=== PATIENT | male | born 1980 | race Caucasian/White ===

== ENCOUNTER 2020-02-26 22:07 | Emergency (ER) | payer OTHER ==
--- NOTE | 2020-02-27 00:18 | ER Document Report ---
ED Medical Screen (RME) - General Chief Complaint: Medical Clearance Stated Complaint: MEDICAL CLEARANCE Time Seen by Provider: 02/27/20 00:14 Notes: HPI: 39-year-old male presenting for clearance to go to [place]. Patient is an alcoholic. Patient states he drinks 12-24 beers daily. Last drink was 3 to 4 hours ago. Patient was attempting to go to rehab but when he checked in there he blew 0.3 and they require 0.2. He is here just to obtain medical clearance has no physical complaints at this time PHYSICAL EXAMINATION: Patient does smell of alcohol. Lung sounds are clear to auscultation very mild tachycardia is noted. No shaking in the extremities. Patient is answering all questions appropriately I have greeted and performed a rapid initial assessment of this patient. A comprehensive ED assessment and evaluation of the patient, analysis of test results and completion of medical decision making process will be conducted by an additional ED providers. Physical Exam - Vital signs Vitals: Temp Pulse Resp BP Pulse Ox 98.4 F 99 20 131/90 H 98 02/26/20 23:22 02/26/20 23:22 02/26/20 23:22 02/26/20 23:22 02/26/20 23:22 Course - Vital Signs Vital signs: Temp Pulse Resp BP Pulse Ox 98.4 F 99 20 131/90 H 98 02/26/20 23:22 02/26/20 23:22 02/26/20 23:22 02/26/20 23:22 02/26/20 23:22
[2020-02-27 01:08] LABS: ABSOLUTE EOSINOPHILS # (AUTO) 0.1 10^3/uL (0.0-0.6); ABSOLUTE MONOCYTES (AUTO) 0.4 10^3/uL (0.1-1.4); ABSOLUTE NEUT (AUTO) 1.6 10^3/uL (1.7-8.2); BASOPHILS % (AUTO) 0.6 % (0-2); EOSINOPHILS % (AUTO) 1.7 % (0-6); HEMATOCRIT 45.3 % (37.9-51.0); LYMPHOCYTES % (AUTO) 50.1 % (13-45); MEAN CORPUSCULAR HEMOGLOBIN 32.4 pg (27.0-33.4); MEAN CORPUSCULAR HGB CONC 35.3 g/dL (32.0-36.0); MEAN CORPUSCULAR VOLUME 92 fl (80-97); MONOCYTES % (AUTO) 9.4 % (3-13); RED BLOOD COUNT 4.93 10^6/uL (4.35-5.55); SEGMENTED NEUTROPHILS % (AUTO) 38.2 % (42-78); TOTAL CELLS COUNTED % (AUTO) 100 %; WHITE BLOOD COUNT 4.1 10^3/uL (4.0-10.5)
[2020-02-27 01:20] LABS: ALBUMIN 4.8 g/dL (3.5-5.0); ALKALINE PHOSPHATASE 67 U/L (38-126); ANION GAP 14 (5-19); ASPARTATE AMINO TRANSFERASE 278 U/L (17-59); BILIRUBIN,TOTAL 0.7 mg/dL (0.2-1.3); BLOOD UREA NITROGEN 2 mg/dL (7-20); CARBON DIOXIDE 25 mmol/L (22-30); CHLORIDE 97 mmol/L (98-107); GLUCOSE 95 mg/dL (75-110); POTASSIUM 4.6 mmol/L (3.6-5.0); TOTAL PROTEIN 8.4 g/dL (6.3-8.2)
[2020-02-27 01:26] LABS: PLATELET COUNT 71 10^3/uL (150-450)
[2020-02-27 01:46] LABS: ALCOHOL 338 mg/dL (NONE DETECTED)
--- NOTE | 2020-02-27 06:43 | ER Document Report ---
ED Substance Abuse / Acc. OD - General Chief Complaint: Medical Clearance Stated Complaint: MEDICAL CLEARANCE Time Seen by Provider: 02/27/20 00:14 Primary Care Provider: CAMMIE,SHUBHAM [Primary Care Provider] - Follow up as needed Notes: Patient is a 39-year-old male who comes emergency department for chief complaint of alcohol intoxication and alcohol dependence. Patient went to [facility], he was referred to the dislocation because he was too intoxicated. Patient states he drinks about 12-24 beers daily, he states that he gets very shaky and has uncomfortable withdrawals but denies having seizures with wi thdrawals in the past. He has no current complaints. Past medical history includes PTSD, ADHD, narcolepsy. Patient states that he does want detox, patient's significant other at bedside is very supportive of this. He denies recreational drugs other than marijuana, denies medical history otherwise. Past Medical History - General Information source: Patient - Social History Smoking Status: Current Every Day Smoker Frequency of alcohol use: Heavy Drug Abuse: Marijuana Lives with: Spouse/Significant other Family History: Reviewed & Not Pertinent Psychiatric Medical History: Reports: Hx Attention Deficit Hyperactivity Disorder, Hx Depression, Hx Post Traumatic Stress Disorder Past Surgical History: Reports: Hx Abdominal Surgery - Immunizations Hx Diphtheria, Pertussis, Tetanus Vaccination: Yes Review of Systems - Review of Systems Constitutional: No symptoms reported EENT: No symptoms reported Cardiovascular: No symptoms reported Respiratory: No symptoms reported Gastrointestinal: No symptoms reported Genitourinary: No symptoms reported Male Genitourinary: No symptoms reported Musculoskeletal: No symptoms reported Skin: No symptoms reported Hematologic/Lymphatic: No symptoms reported Neurological/Psychological: See HPI Physical Exam - Vital signs Vitals: Temp Pulse Resp BP Pulse Ox 98.4 F 99 20 131/90 H 98 02/26/20 23:22 02/26/20 23:22 02/26/20 23:22 02/26/20 23:22 02/26/20 23:22 - Notes Notes: GENERAL: Alert, interacts well. No acute distress. Smells of alcohol but is cooperative and has no signs of distress HEAD: Normocephalic, atraumatic. EYES: Pupils equal, round, and reactive to light. Extraocular movements intact. ENT: Oral mucosa moist, tongue midline. Oropharynx unremarkable. Airway patent. LUNGS: Clear to auscultation bilaterally, no wheezes, rales, or rhonchi. No respiratory distress. Non-tender chest wall. HEART: Regular rate and rhythm. No murmur ABDOMEN: Soft, non-tender. Non-distended. EXTREMITIES: Moves all 4 extremities spontaneously. No edema, normal radial and dorsalis pedis pulses bilaterally. No cyanosis. BACK: no cervical, thoracic, lumbar midline tenderness. No saddle anesthesia, normal distal neurovascular exam. Moves all extremities in full range of motion. NEUROLOGICAL: Alert and oriented x3. Normal speech. Cranial nerves II through XII grossly intact. Strength 5/5 in all extremities. PSYCH: Normal affect, normal mood. SKIN: Warm, dry, normal turgor. No rashes or lesions noted. Course - Re-evaluation Re-evalutation: Patient has no complaints, states he is simply here to get into detox. He smells of alcohol but his physical exam is unremarkable otherwise. Vital signs unremarkable. CBC unremarkable, chemistry shows elevated LFTs with AST greater than ALT as expected but patient has no abdominal pain, vomiting, flank pain, or any other current symptoms. I suspect this is baseline from his alcohol abuse. Alcohol level is very elevated and will need to be trended before he can be placed in detox. - Vital Signs Vital signs: Temp Pulse Resp BP Pulse Ox 98.4 F 87 20 126/87 H 98 02/27/20 03:13 02/27/20 03:13 02/26/20 23:22 02/27/20 03:13 02/27/20 03:13 - Laboratory Result Diagrams: 02/27/20 00:50 02/27/20 00:50 Laboratory results interpreted by me: 02/27/20 02/27/20 00:50 00:50 RDW 16.0 H Plt Count 71 L Lymph % (Auto) 50.1 H Absolute Neuts (auto) 1.6 L Seg Neutrophils % 38.2 L Sodium 135.6 L Chloride 97 L BUN 2 L AST 278 H ALT 174 H Total Protein 8.4 H Serum Alcohol 338 H* Discharge - Discharge Clinical Impression: Alcohol dependence Qualifiers: Substance use status: unspecified alcohol-induced disorder Qualified Code(s): F10.29 - Alcohol dependence with unspecified alcohol-induced disorder Alcohol intoxication Qualifiers: Complication of substance-induced condition: uncomplicated Qualified Code(s): F10.920 - Alcohol use, unspecified with intoxication, uncomplicated Condition: Stable Disposition: HOME, SELF-CARE Additional Instructions: Proceed directly to [facility] for alcohol detox. Return for any concerning symptoms or something is not right.
[2020-02-27 09:29] VITALS: BP 125/80
== END 2020-02-27 09:20 | disposition home or self-care (01) ==
LOC: ER 22:07
DX: F10.920 Alcohol use, unspecified with intoxication, uncomplicated (principal); F10.29 Alcohol dependence with unspecified alcohol-induced disorder; F17.200 Nicotine dependence, unspecified, uncomplicated; F43.10 Post-traumatic stress disorder, unspecified; F90.9 Attention-deficit hyperactivity disorder, unspecified type
CPT/HCPCS: 36415; 80053; 80307; 85025; 99283

== ENCOUNTER 2020-06-12 17:13 | Emergency (ER) | payer OTHER ==
--- NOTE | 2020-06-12 17:56 | ER Document Report ---
ED Medical Screen (RME) - General Stated Complaint: FEVER, NUMBNES IN FINGERS Time Seen by Provider: 06/12/20 17:54 Primary Care Provider: SHUBHAM BONDS [Primary Care Provider] - Follow up as needed Mode of Arrival: Ambulatory Information source: Patient Notes: 39-year-old male patient presented to the emergency department chief complaint of numbness and tingling to his right arm. Patient denies any change in strength. He does report low back pain, states this is chronic for him. He states he is trying to quit drinking alcohol. The last time he drank was an hour and a half ago. He does report history of seizures with detox in the past. Video Software Engineer strength equal bilaterally. Patient reports altered sensation to right arm. No focal neurological deficits noted other than the alteration in sensation. I have greeted and performed a rapid initial assessment of this patient. A comprehensive ED assessment and evaluation of the patient, analysis of test results and completion of the medical decision making process will be conducted by additional ED providers. I have specifically instructed the patient or family members with the patient to immediately return to any nursing staff shou ld anything change in the patient's condition or with their chief complaint. Past Medical History Psychiatric Medical History: Reports: Hx Attention Deficit Hyperactivity Disorder, Hx Depression, Hx Post Traumatic Stress Disorder Past Surgical History: Reports: Hx Abdominal Surgery - Immunizations Hx Diphtheria, Pertussis, Tetanus Vaccination: Yes Physical Exam - Vital signs Vitals: Temp Pulse Resp BP Pulse Ox 99.5 F 128 H 16 161/88 H 99 06/12/20 17:30 06/12/20 17:30 06/12/20 17:30 06/12/20 17:30 06/12/20 17:30 Course - Vital Signs Vital signs: Temp Pulse Resp BP Pulse Ox 99.5 F 128 H 16 161/88 H 99 06/12/20 17:30 06/12/20 17:30 06/12/20 17:30 06/12/20 17:30 06/12/20 17:30 Doctor's Discharge - Discharge Referrals: CAMMIE,SHUBHAM [Primary Care Provider] - Follow up as needed
[2020-06-12] MEDS ORDERED: LORAZEPAM 1 MG TABLET PO ONE (22:03)
[2020-06-13] MEDS ORDERED: LORAZEPAM INJ 2 MG/1 ML VIAL IV ONE ×2 (08:45→14:25)
--- NOTE | 2020-06-13 09:06 | ER Document Report ---
ED General - General Chief Complaint: Numbness of Arm Stated Complaint: FEVER, NUMBNES IN FINGERS Time Seen by Provider: 06/12/20 17:54 Primary Care Provider: [facility] [Primary Care Provider] - Follow up as needed Mode of Arrival: Ambulatory - [facility] Notes: Chief complaint: Multiple concerns History of present illness: 39-year-old male on medical disability with [employer] secondary to PTSD presents with multiple complaints. He is chronically abusing alcohol drinking in excess of a case of beer per day. He says for the last 3 to 4 days he has had a loss of strength in his right upper extremity associated with tingling and numbness. He denies any trauma. Says he has had problems with his neck in the past related to a slip and fall injury and a [employer] several years ago. He was seeing a chiropractor in the past for treatment of "disc problems in the neck" related to this. He denies any new injury. Says that he would like to get detox. His last drink has been more than 12 hours ago when he feels shaky. He denies any suicidal or homicidal ideation. He denies any hallucinations. Patient reports he has had alcohol withdrawal seizures in the past. Patient also has problems with chronic low back pain. - Related Data Allergies/Adverse Reactions: No Known Allergies Allergy (Unverified 06/13/20 09:10) Past Medical History - General Information source: Patient - Social History Smoking Status: Current Every Day Smoker Frequency of alcohol use: case a day Lives with: Friend Family History: Reviewed & Not Pertinent - Past Medical History Cardiac Medical History: Reports: None Pulmonary Medical History: Reports: None Endocrine Medical History: Denies: Hx Diabetes Mellitus Type 1, Hx Diabetes Mellitus Type 2 Renal/ Medical History: Reports: None Malignancy Medical History: Reports None Musculoskeletal Medical History: Reports Hx Musculoskeletal Trauma, Reports Hx Sciatica Psychiatric Medical History: Reports: Hx Attention Deficit Hyperactivity Disorder, Hx Depression, Hx Post Traumatic Stress Disorder Past Surgical History: Reports: Hx Abdominal Surgery - Immunizations Hx Diphtheria, Pertussis, Tetanus Vaccination: Yes Review of Systems - Review of Systems Notes: Constitutional: Negative for fever. HENT: Negative for sore throat. Eyes: Negative for visual changes. Cardiovascular: Negative for chest pain. Respiratory: Negative for shortness of breath. Gastrointestinal: Negative for abdominal pain, vomiting or diarrhea. Genitourinary: Negative for dysuria. Musculoskeletal: As per HPI. Skin: Negative for rash. Neurological: As per HPI. 10 point ROS negative except as marked above and in HPI. Physical Exam - Vital signs Vitals: Temp Pulse Resp BP Pulse Ox 99.5 F 128 H 16 161/88 H 99 06/12/20 17:30 06/12/20 17:30 06/12/20 17:30 06/12/20 17:30 06/12/20 17:30 - Notes Notes: GENERAL: Mildly obese middle-aged male who appears slightly tremulous. SKIN: Good turgor no rashes. HEAD: Normocephalic atraumatic. EYES: PERRLA. EOMI. Conjunctivae and sclerae clear. EARS: CANALS AND TMS CLEAR. NOSE: CLEAR. MOUTH: Moist mucosa. Good dentition. No stridor or edema. No drooling. NECK: Supple. No masses or thyromegaly. No adenopathy. Carotids 2+ without bruits. No JVD. BACK: Symmetrical without tenderness. CHEST: Respirations unlabored. Breath sounds clear and symmetrical. HEART: Regular rhythm. No murmur gallop or rub. ABDOMEN: Soft nontender without masses, organomegaly or rebound. Bowel sounds normally active. No bruits. GENITALIA: Deferred. EXTREMITIES: No edema. No calf tenderness. Cap refill less than 1.5 seconds. Dorsalis pedis and posterior tibial pulses 3+ and symmetrical. NEUROLOGICAL: Mild decreased sensation over all the fingers of the right hand. Tinel's and Phalen sign negative. No tenderness or swelling over the volar aspect of the wrist. Motor function is intact. Mild resting tremor which is generalized. GCS 15. Alert and oriented x3. Normal gait. Fluent speech. Cranial nerves II through XII intact. Normal tone. PSYCHIATRIC: Appropriate affect. Course - Re-evaluation Re-evalutation: 06/13/20 12:57 Clinically this man appears to have a mild radiculopathy versus a peripheral neuropathy involving his right upper extremity. Sensory findings here are equivalent. There is no motor deficit. Head CT was negative. C-spine plain films were negative. Patient has some mild elevation of his transaminases consistent with chronic alcohol abuse. He also had marijuana on his urine tox screen. He is requested referral for detox. Patient appears to be medically stable for referral to a detox center. Behavioral medicine consultation requested. 06/13/20 15:13 Patient is to be discharged for voluntary admission at [facility]. - Vital Signs Vital signs: Temp Pulse Resp BP Pulse Ox 98.6 F 91 24 H 152/92 H 98 06/13/20 07:09 06/13/20 07:09 06/13/20 13:01 06/13/20 13:00 06/13/20 13:01 - Laboratory Result Diagrams: 06/13/20 09:07 06/13/20 09:07 Laboratory results interpreted by me: 06/13/20 06/13/20 06/13/20 09:07 09:07 11:15 RDW 14.7 H Sodium 132.9 L Chloride 93 L BUN 4 L AST 189 H ALT 127 H Urine Ketones 80 H Urine Blood SMALL H - Diagnostic Test Radiology reviewed: Image reviewed, Reports reviewed Radiology results interpreted by me: 06/13/20 10:[address] 06/13/20 08:44 IMPRESSION: NORMAL BRAIN CT WITHOUT CONTRAST. EVIDENCE OF ACUTE STROKE: NO. Cervical Spine X-Ray 06/13/20 08:45 IMPRESSION: NO SIGNIFICANT RADIOGRAPHIC FINDING IN THE CERVICAL SPINE. Chest X-Ray 06/13/20 08:45 IMPRESSION: NO SIGNIFICANT RADIOGRAPHIC FINDING IN THE CHEST. - EKG Interpretation by Me Additional EKG results interpreted by me: 06/13/20 09:27 Twelve-lead EKG reviewed by me contemporaneously: 0856 hrs. 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
[2020-06-13 09:33] LABS: INTERNATIONAL RATION (INR) 1.01; PROTHROMBIN TIME 13.5 SEC (11.4-15.4)
[2020-06-13 09:34] LABS: ABSOLUTE LYMPHOCYTES (AUTO) 0.8 10^3/uL (0.5-4.7); ABSOLUTE MONOCYTES (AUTO) 0.4 10^3/uL (0.1-1.4); BASOPHILS % (AUTO) 0.5 % (0-2); EOSINOPHILS % (AUTO) 0.5 % (0-6); HEMATOCRIT 42.3 % (37.9-51.0); HEMOGLOBIN 14.6 g/dL (13.5-17.0); MEAN CORPUSCULAR HEMOGLOBIN 31.6 pg (27.0-33.4); MEAN CORPUSCULAR HGB CONC 34.5 g/dL (32.0-36.0); MEAN CORPUSCULAR VOLUME 92 fl (80-97); MONOCYTES % (AUTO) 8.9 % (3-13); PARTIAL THROMBOPLASTIN TIME 25.8 SEC (23.5-35.8); PLATELET COUNT 157 10^3/uL (150-450); RED BLOOD COUNT 4.61 10^6/uL (4.35-5.55); RED CELL DISTRIBUTION WIDTH 14.7 % (11.5-14.0); SEGMENTED NEUTROPHILS % (AUTO) 70.1 % (42-78); TOTAL CELLS COUNTED % (AUTO) 100 %; WHITE BLOOD COUNT 4.2 10^3/uL (4.0-10.5)
--- NOTE | 2020-06-13 09:41 | RADIOLOGY REPORT (SQ) ---
EXAM DESCRIPTION: CT HEAD WITHOUT IMAGES COMPLETED DATE/TIME: 06/13/2020 9:30 am REASON FOR STUDY: sensory sx. RUE COMPARISON: None. TECHNIQUE: Axial images acquired through the brain without intravenous contrast. Images reviewed wi th bone, brain and subdural windows. Additional sagittal and coronal reconstructions were generated. Images stored on PACS. All CT scanners at this facility use dose modulation, iterative reconstruction, and/or weight based d osing when appropriate to reduce radiation dose to as low as reasonably achievable (ALARA). [facility]: Dose Right [facility]: CareDose [facility]: Dose Right [facility]: Teradose 4D [facility]: Ecofoot RADIATION DOSE: CT Rad equipment meets quality standard of care and radiation dose reduction techniq ues were employed. CTDIvol: 53.2 mGy. DLP: 1070 mGy-cm. mGy. LIMITATIONS: None. FINDINGS: VENTRICLES: Normal size and contour. CEREBRUM: No masses. No hemorrhage. No midline shift. No evidence for acute infarction. Normal gra y/white matter differentiation. No areas of low density in the white matter. CEREBELLUM: No masses. No hemorrhage. No alteration of density. No evidence for acute infarction. EXTRAAXIAL SPACES: No fluid collections. No masses. ORBITS AND GLOBE: No intra- or extraconal masses. Normal contour of globe without masses. CALVARIUM: No fracture. PARANASAL SINUSES: No fluid or mucosal thickening. SOFT TISSUES: No mass or hematoma. OTHER: No other significant finding. IMPRESSION: NORMAL BRAIN CT WITHOUT CONTRAST. EVIDENCE OF ACUTE STROKE: NO. COMMENT: Quality ID # [id number]: Final reports with documentation of one or more dose reduction techniques (e.g., Automated exposure control, adjustment of the mA and/or kV according to patient size, use of iterative reconstruction technique) TECHNICAL DOCUMENTATION: JOB ID: [id number] 2010 [employer]- All Rights Reserved Reading location - IP/workstation name: [email or web address]
[2020-06-13 09:45] LABS: ALBUMIN 4.7 g/dL (3.5-5.0); ALKALINE PHOSPHATASE 72 U/L (38-126); ANION GAP 18 (5-19); ASPARTATE AMINO TRANSFERASE 189 U/L (17-59); BILIRUBIN,DIRECT 0.3 mg/dL (0.0-0.4); BILIRUBIN,TOTAL 0.6 mg/dL (0.2-1.3); BLOOD UREA NITROGEN 4 mg/dL (7-20); CARBON DIOXIDE 22 mmol/L (22-30); CHLORIDE 93 mmol/L (98-107); GLUCOSE 78 mg/dL (75-110); POTASSIUM 4.5 mmol/L (3.6-5.0); TOTAL PROTEIN 7.6 g/dL (6.3-8.2)
[2020-06-13 09:47] LABS: ALCOHOL < 10 mg/dL (NONE DETECTED)
--- NOTE | 2020-06-13 09:53 | RADIOLOGY REPORT (SQ) ---
EXAM DESCRIPTION: CHEST SINGLE VIEW IMAGES COMPLETED DATE/TIME: 06/13/2020 9:22 am REASON FOR STUDY: cp COMPARISON: None. NUMBER OF VIEWS: One view. TECHNIQUE: Single frontal radiographic view of the chest acquired. LIMITATIONS: None. FINDINGS: LUNGS AND PLEURA: No opacities, masses or pneumothorax. No pleural effusion. MEDIASTINUM AND HILAR STRUCTURES: No masses. Contour normal. HEART AND VASCULAR STRUCTURES: Heart normal in size. Normal vasculature. BONES: No acute findings. HARDWARE: None in the chest. OTHER: No other significant finding. IMPRESSION: NO SIGNIFICANT RADIOGRAPHIC FINDING IN THE CHEST. TECHNICAL DOCUMENTATION: JOB ID: [id number] 2010 [employer]- All Rights Reserved Reading location - IP/workstation name: [email or web address]
--- NOTE | 2020-06-13 09:55 | RADIOLOGY REPORT (SQ) ---
EXAM DESCRIPTION: CERV SP 4 OR 5 VIEWS IMAGES COMPLETED DATE/TIME: 06/13/2020 9:22 am REASON FOR STUDY: neck pain COMPARISON: None. NUMBER OF VIEWS: Five views. TECHNIQUE: AP, lateral, obliques and odontoid radiographic images acquired of the cervical spine. LIMITATIONS: None. FINDINGS: MINERALIZATION: Normal. ALIGNMENT: Anatomic. VERTEBRAE: Vertebral bodies of normal height. DISCS: No significant osteophytes or sclerosis. Disc height maintained. FORAMINA: No osteophytes or foraminal narrowing. LATERAL AND POSTERIOR ELEMENTS: Facets, lateral masses and spinous processes without significant find ings. HARDWARE: None in the spine. SOFT TISSUES: No masses or calcifications. Lung apices clear. OTHER: No other significant finding. IMPRESSION: NO SIGNIFICANT RADIOGRAPHIC FINDING IN THE CERVICAL SPINE. TECHNICAL DOCUMENTATION: JOB ID: [id number] 2010 [employer]- All Rights Reserved Reading location - IP/workstation name: [email or web address]
[2020-06-13 11:40] LABS: APPEARANCE,URINE CLEAR; BILIRUBIN,URINE NEGATIVE (NEGATIVE); COLOR,URINE YELLOW; GLUCOSE, URINE NEGATIVE (NEGATIVE); KETONES,URINE 80 mg/dL (NEGATIVE); PROTEIN,URINE NEGATIVE (NEGATIVE); UROBILINOGEN,URINE NEGATIVE mg/dL (<2.0)
[2020-06-13 12:01] LABS: URINE AMPHETAMINES SCREEN NEGATIVE; URINE BARBITURATES SCREEN NEGATIVE; URINE BENZODIAZEPINES SCREEN NEGATIVE; URINE COCAINE SCREEN NEGATIVE; URINE METHADONE SCREEN NEGATIVE; URINE PHENCYCLIDINE SCREEN NEGATIVE
[2020-06-13 12:05] LABS: URINE MARIJUANA (THC) SCREEN UNCONFIRMED POSITIVE
[2020-06-13] MEDS ORDERED: NORMAL SALINE 1000 ML 1,000 ML with POTASSIUM CHLORIDE 20 MEQ, MAGNESIUM SULFATE 8 MEQ,... IV SCH ×10 (13:00→18:00)
--- NOTE | 2020-06-13 17:51 | EKG REPORT ---
SEVERITY:- NORMAL ECG - SINUS RHYTHM : Confirmed by: Angeles Mckeon 13-Jun-2020 17:50:38
[2020-06-13 18:15] VITALS: BP 164/98
== END 2020-06-13 18:25 | disposition home or self-care (01) ==
LOC: ER 17:13
DX: G62.0 Drug-induced polyneuropathy (principal); T50.905A Adverse effect of unspecified drugs, medicaments and biological substances, initial encounter; F10.20 Alcohol dependence, uncomplicated; K70.10 Alcoholic hepatitis without ascites; F12.10 Cannabis abuse, uncomplicated; R07.9 Chest pain, unspecified; M54.2 Cervicalgia; M54.5 Low back pain; G89.29 Other chronic pain; F17.200 Nicotine dependence, unspecified, uncomplicated; E66.9 Obesity, unspecified
CPT/HCPCS: 93005; 96376; 99285; 96375; 96365; 96366; 36415; 80307 ×2; 85025; 85610; 85730; 80053; 81001; 72050; 71045; 70450; 93010; J3475; J2060; J3480; J3411; J7030; J3490

== ENCOUNTER 2020-07-24 21:20 | Emergency (ER) | payer OTHER ==
[2020-07-24 21:26] VITALS: BP 137/95
--- NOTE | 2020-07-24 21:49 | ER Document Report ---
ED GI Bleed / Rectal Pain - General Chief Complaint: Rectal Bleeding Stated Complaint: RECTAL BLEEDING FOR 12 DAYS Time Seen by Provider: 07/24/20 21:34 Primary Care Provider: CAMMIE,SHUBHAM [Primary Care Provider] - Follow up as needed Mode of Arrival: Ambulatory Information source: Patient Notes: Patient is a 40-year-old male comes emergency room complaint of having rectal pain with bleeding. Patient states that started approximately 2 weeks ago and has gotten worse over the course of that 2 weeks. He states that he has been constipated he has tried to using some laxatives [id number] but is not getting any better. Patient states that the pain is to the point where he has had a hard time having a bowel movement Period. He has had this problem in the past but they have always gone away this time he does not think they are going away. He denies any other medical problems. He is currently taking no medications. Patient does admit to smoking. TRAVEL OUTSIDE OF THE [place] IN LAST 30 DAYS: No - HPI Patient complains to provider of: Bright red bld from rect., Hemorrhoids, Rectal pain Onset: Other - 2 weeks Timing/Duration: Constant Severity of symptoms: Severe Pain Level: 4 Rectal bleeding: Bright red blood on paper Rectal foreign body: No Rectal pain with intercourse: No Use of: NSAIDS. denies: Warfarin, Plavix, Lovenox, Pradaxa Associated symptoms: None Exacerbated by: Other - Bowel movements - Related Data Allergies/Adverse Reactions: No Known Allergies Allergy (Unverified 06/13/20 09:10) Past Medical History - General Information source: Patient - Social History Smoking Status: Current Every Day Smoker Cigarette use (# per day): Yes - Half pack Chew tobacco use (# tins/day): No Smoking Education Provided: Yes Frequency of alcohol use: None Drug Abuse: None Lives with: Family Family History: Reviewed & Not Pertinent Endocrine Medical History: Denies: Hx Diabetes Mellitus Type 1, Hx Diabetes Mellitus Type 2 Musculoskeletal Medical History: Reports Hx Musculoskeletal Trauma Psychiatric Medical History: Reports: Hx Attention Deficit Hyperactivity Disorder, Hx Depression, Hx Post Traumatic Stress Disorder Past Surgical History: Reports: Hx Abdominal Surgery - Immunizations Hx Diphtheria, Pertussis, Tetanus Vaccination: Yes Review of Systems - Review of Systems Constitutional: No symptoms reported EENT: No symptoms reported Cardiovascular: No symptoms reported Respiratory: No symptoms reported Gastrointestinal: See HPI, Constipation, Blood streaked bowels, Rectal bleeding Male Genitourinary: No symptoms reported Musculoskeletal: No symptoms reported Skin: No symptoms reported Hematologic/Lymphatic: No symptoms reported Neurological/Psychological: No symptoms reported -: Yes All other systems reviewed and negative Physical Exam - Vital signs Vitals: Temp Pulse Resp BP Pulse Ox 98.2 F 96 18 137/95 H 97 07/24/20 21:25 12 21:25 07/24/20 21:25 07/24/20 21:25 07/24/20 21:25 Interpretation: Hypertensive - Notes Notes: PHYSICAL EXAMINATION: GENERAL: Well-appearing, well-nourished and in no acute distress. HEAD: Atraumatic, normocephalic. NECK: Normal range of motion, supple without lymphadenopathy LUNGS: Breath sounds clear to auscultation bilaterally and equal. No wheezes rales or rhonchi. HEART: Regular rate and rhythm without murmurs ABDOMEN: Soft, nontender, nondistended abdomen. No guarding, no rebound. No masses appreciated. Examination patient's rectal area does show no external hemorrhoids. And there is with patient bending over a soft tissue area just inside the rectum the feels like an internal hemorrhoid. Is very tender to palpate. No other visual signs of bleeding. There is no sign of hemorrhoid clots in the portion I could feel was soft to palpate but tender. Musculoskeletal: Normal range of motion, no pitting or edema. No cyanosis. NEUROLOGICAL: Normal speech, normal gait. Normal sensory, motor exams PSYCH: Normal mood, normal affect. SKIN: Warm, Dry, normal turgor, no rashes or lesions noted. Course - Re-evaluation Re-evalutation: 07/24/20 21:49 On examination patient had no external hemorrhoids that I can see. Therefore a slight palpation of the internal portion of the sphincter did show what felt like a defect and very tender but it was there was no embolism or clot felt. We will going to try to use Anusol suppositories and cream and patient will start a regime with MiraLAX and also bean picker a sitz bath bowl for his toilet. I also explained to him there is limited things we can do at a ER for this type of a presentation with internal hemorrhoids this is something he has to see a surgeon about. If the pain continues on I am giving him the name of the surgeon on-call tonight he can contact the office to see if he can accommodate him. - Vital Signs Vital signs: Temp Pulse Resp BP Pulse Ox 98.2 F 96 18 137/95 H 97 07/24/20 21:25 1220 21:25 12 21:25 07/24/20 21:25 07/24/20 21:25 - Laboratory Results Critical Laboratory Results Reviewed: No Critical Results - Radiology Results Critical Radiology Results Reviewed: No Critical Results Discharge - Discharge Clinical Impression: Internal hemorrhoids Condition: Stable Disposition: HOME, SELF-CARE Instructions: Hemorrhoids ([facility]) Additional Instructions: As we discussed use the suppositories and the cream as directed. Also the sitz bath's as we described warm soapy water 2-3 times a day if possible. If you cannot find that type of ball you can sit in the bathtub and do the same. As we also discussed this is a type of situation we can do little with out of the emergency room this is something you need to follow-up with a surgeon with I am giving you the name of surgeon transactional attorney you can contact his office to see if he can accommodate you. Should you have any concerns or problems you can always return to ER for reevaluation. Prescriptions: Hydrocortisone Acetate [Anusol-Hc] 25 mg RC BID #20 supp.rect Hydrocortisone [Anusol-Hc] 30 gm RC TID #1 tube Forms: Elevated Blood Pressure, Smoking Cessation Education, Return to Work [facility] [[facility] - Follow up as needed
== END 2020-07-24 22:00 | disposition home or self-care (01) ==
LOC: ER 21:20
DX: K62.5 Hemorrhage of anus and rectum (principal); K64.8 Other hemorrhoids; K59.00 Constipation, unspecified; F17.210 Nicotine dependence, cigarettes, uncomplicated
CPT/HCPCS: 99283

== ENCOUNTER 2020-07-25 18:36 | Emergency (ER) | payer OTHER ==
--- NOTE | 2020-07-25 19:07 | ER Document Report ---
ED Medical Screen (RME) - General Chief Complaint: Rectal Pain Stated Complaint: RECTAL PAIN Time Seen by Provider: 07/25/20 19:05 Primary Care Provider: [facility] [Primary Care Provider] - Follow up as needed Mode of Arrival: Ambulatory Information source: Patient Notes: 40-year-old male presented to ED for complaint of rectal pain and rectal bleeding. He states he was seen in the triage area and discharged yesterday after the PA examined him in the triage area and told him that he had internal hemorrhoids. He did give him creams and suppositories. He states he is not to be able to get any of that until at least next week because [facility] will last the [facility]. He states the [place] pharmacies will not fill his [facility] prescriptions and he would be well over $200 they could not fill it. I have ordered blood urine and a doughnut for the patient. The stores disposed to bring down a doughnut and give it to him while he is in the pit area and then he need to be examined thoroughly and see if he needs something more than just creams and suppositories. He states he did not care if he needs to go to surgery he needs something for this pain that is excruciating. He states he has had rectal bleeding for about 12 days now. I have greeted and performed a rapid initial assessment of this patient. A comprehensive ED assessment and evaluation of the patient, analysis of test results and completion of medical decision making process will be conducted by an additional ED providers. TRAVEL OUTSIDE OF THE [place] IN LAST 30 DAYS: No - Related Data Allergies/Adverse Reactions: No Known Allergies Allergy (Unverified 06/13/20 09:10) Past Medical History Endocrine Medical History: Denies: Hx Diabetes Mellitus Type 1, Hx Diabetes Mellitus Type 2 Musculoskeltal Medical History: Reports Hx Musculoskeletal Trauma Psychiatric Medical History: Reports: Hx Attention Deficit Hyperactivity Disorder, Hx Depression, Hx Post Traumatic Stress Disorder Past Surgical History: Reports: Hx Abdominal Surgery - Immunizations Hx Diphtheria, Pertussis, Tetanus Vaccination: Yes Physical Exam - Vital signs Vitals: Temp Pulse Resp BP Pulse Ox 98.4 F 93 20 144/85 H 97 07/24/20 18:47 07/24/20 18:47 07/24/20 18:47 07/24/20 18:47 07/24/20 18:47 Course - Vital Signs Vital signs: Temp Pulse Resp BP Pulse Ox 98.4 F 93 20 144/85 H 97 07/24/20 18:47 07/24/20 18:47 07/24/20 18:47 07/24/20 18:47 07/24/20 18:47 Doctor's Discharge - Discharge Referrals: [facility] [[facility]] - Follow up as needed
[2020-07-25] MEDS ORDERED: OXYCODONE-ACETAMINOPHEN 5-325 MG TABLET PO ONE (19:08)
[2020-07-25 20:29] LABS: ABSOLUTE LYMPHOCYTES (AUTO) 0.6 10^3/uL (0.5-4.7); ABSOLUTE MONOCYTES (AUTO) 0.6 10^3/uL (0.1-1.4); ABSOLUTE NEUT (AUTO) 4.8 10^3/uL (1.7-8.2); BASOPHILS % (AUTO) 0.3 % (0-2); EOSINOPHILS % (AUTO) 0.4 % (0-6); HEMATOCRIT 41.6 % (37.9-51.0); HEMOGLOBIN 14.1 g/dL (13.5-17.0); LYMPHOCYTES % (AUTO) 9.8 % (13-45); MEAN CORPUSCULAR HEMOGLOBIN 30.7 pg (27.0-33.4); MEAN CORPUSCULAR HGB CONC 33.9 g/dL (32.0-36.0); MEAN CORPUSCULAR VOLUME 91 fl (80-97); MONOCYTES % (AUTO) 9.7 % (3-13); PLATELET COUNT 229 10^3/uL (150-450); RED CELL DISTRIBUTION WIDTH 15.1 % (11.5-14.0); SEGMENTED NEUTROPHILS % (AUTO) 79.8 % (42-78); TOTAL CELLS COUNTED % (AUTO) 100 %
[2020-07-25 20:47] LABS: ALBUMIN 3.7 g/dL (3.5-5.0); ALKALINE PHOSPHATASE 54 U/L (38-126); ASPARTATE AMINO TRANSFERASE 20 U/L (17-59); BILIRUBIN,DIRECT 0.1 mg/dL (0.0-0.4); BILIRUBIN,TOTAL 0.4 mg/dL (0.2-1.3); BLOOD UREA NITROGEN 6 mg/dL (7-20); CARBON DIOXIDE 29 mmol/L (22-30); CHLORIDE 104 mmol/L (98-107); GLUCOSE 117 mg/dL (75-110); POTASSIUM 4.5 mmol/L (3.6-5.0); TOTAL PROTEIN 6.7 g/dL (6.3-8.2)
[2020-07-25 20:49] LABS: ANION GAP 4 (5-19)
[2020-07-25 22:04] LABS: APPEARANCE,URINE SLIGHTLY-CLOUDY; BILIRUBIN,URINE NEGATIVE (NEGATIVE); COLOR,URINE YELLOW; GLUCOSE, URINE NEGATIVE (NEGATIVE); KETONES,URINE NEGATIVE (NEGATIVE); LEUKOCYTE ESTERASE,URINE NEGATIVE (NEGATIVE); NITRITE,URINE NEGATIVE (NEGATIVE); PROTEIN,URINE 30 mg/dL (NEGATIVE); URINE SPECIFIC GRAVITY 1.011; UROBILINOGEN,URINE NEGATIVE mg/dL (<2.0)
[2020-07-25] MEDS ORDERED: CLINDAMYCIN 600 MG/D5W RTU 600 MG/50 ML RTUPB IV ONE (22:22)
[2020-07-25] MEDS ORDERED: NORMAL SALINE 1000 ML 1,000 ML IV ONE (22:22)
--- NOTE | 2020-07-25 22:28 | ER Document Report ---
Entered by DIMPLE JONES SCRIBE 07/25/20 [id number] Acting as scribe for:JOANN FERREIRA DO ED GI/ - General Chief Complaint: Rectal Bleeding Stated Complaint: RECTAL PAIN Time Seen by Provider: 07/25/20 19:05 Primary Care Provider: [facility] [[facility]] - Follow up as needed Mode of Arrival: Ambulatory Information source: Patient Notes: This 40 year old male patient presents to the emergency department today with complaints of rectal pain and rectal bleeding. Patient was seen here yesterday and it was thought to be an internal hemorrhoid. He was sent home on Anusol but he reports he could not fill the prescription due to cost, the [facility] told [facility]. He reports the pain has increased today and he filled the toilet bowl with blood. He denies any recent heavy lifting. TRAVEL OUTSIDE OF THE [place] IN LAST 30 DAYS: No - Related Data Allergies/Adverse Reactions: No Known Allergies Allergy (Unverified 06/13/20 09:10) Home Medications: Prozac Past Medical History - General Information source: Patient - Social History Smoking Status: Current Every Day Smoker Cigarette use (# per day): Yes Frequency of alcohol use: None Drug Abuse: None Lives with: Family Family History: Reviewed & Not Pertinent Musculoskeletal Medical History: Reports Hx Musculoskeletal Trauma Psychiatric Medical History: Reports: Hx Attention Deficit Hyperactivity Disorder, Hx Depression, Hx Post Traumatic Stress Disorder Past Surgical History: Reports: Hx Abdominal Surgery - Immunizations Hx Diphtheria, Pertussis, Tetanus Vaccination: Yes Review of Systems - Review of Systems Constitutional: No symptoms reported EENT: No symptoms reported Cardiovascular: No symptoms reported Respiratory: No symptoms reported Gastrointestinal: See HPI, Rectal bleeding, Other - rectal pain Genitourinary: No symptoms reported Male Genitourinary: No symptoms reported Musculoskeletal: No symptoms reported Skin: No symptoms reported Hematologic/Lymphatic: No symptoms reported Neurological/Psychological: No symptoms reported -: Yes All other systems reviewed and negative Physical Exam - Vital signs Vitals: Temp Pulse Resp BP Pulse Ox 98.4 F 93 20 144/85 H 97 07/24/20 18:47 07/24/20 18:47 07/24/20 18:47 07/24/20 18:47 07/24/20 18:47 - Notes Notes: Physical Exam: General: Alert, appears uncomfortable. HEENT: Normocephalic. Atraumatic. PERRL. Extraocular movements intact. Oropharynx clear. Neck: Supple. Non-tender. Respiratory: No respiratory distress. Clear and equal breath sounds bilaterally. Cardiovascular: Regular rate and rhythm. Abdominal: Normal Inspection. Non-tender. No distension. Normal Bowel Sounds. Rectal: Performed with male geospatial applications developer in attendance. In the knee-chest position at 9oclock position there is an open wound with scant blood and purulent discharge coming from the wound. There is surrounding induration and exquisite tenderness to palpation. Back: No gross abnormalities. Extremities: Moves all four extremities. Upper extremities: Normal inspection. Normal ROM. Lower extremities: Normal inspection. No edema. Normal ROM. Neurological: Normal cognition. AAOx4. Normal speech. Psychological: Normal affect. Normal Mood. Skin: Warm. Dry. Normal color. Course - Re-evaluation Re-evalutation: 07/26/20 01:28 MDM 40 year old with perirectal abcess that is draining. Ct is reassuring. Discussed sitz bathes and medical reccomendations and follow up and he expressed understanding. We also discussed return precaution.s - Vital Signs Vital signs: Temp Pulse Resp BP Pulse Ox 98.5 F 76 18 125/65 96 07/25/20 21:51 07/25/20 21:51 07/25/20 21:51 07/25/20 21:51 07/25/20 21:51 - Laboratory Results Result Diagrams: 07/25/20 19:39 07/25/20 19:39 Laboratory Results Interpreted: 07/25/20 07/25/20 07/25/20 19:39 19:39 19:39 RDW 15.1 H Lymph % (Auto) 9.8 L Seg Neutrophils % 79.8 H Anion Gap 4 L BUN 6 L Glucose 117 H C-Reactive Protein 28.8 H Urine Protein Urine Blood 07/25/20 21:31 RDW Lymph % (Auto) Seg Neutrophils % Anion Gap BUN Glucose C-Reactive Protein Urine Protein 30 H Urine Blood SMALL H Critical Laboratory Results Reviewed: No Critical Results - Radiology Results Critical Radiology Results Reviewed: No Critical Results Discharge - Discharge Clinical Impression: Snow-rectal abscess Condition: Stable Disposition: HOME, SELF-CARE Instructions: Abscess ([facility]), Oral Narcotic Medication ([facility]) Additional Instructions: Clear liquid diet for 24 hours. Rest. Take the medicine as directed. Please return here for increased pain, fever, persistent vomiting or other problems or concerns. Your medicine has been sent to [facility] in [place]. Use a sitz bath at home - sit in warm water. Do not place cream of ointment on the area around your anus. Prescriptions: Ciprofloxacin HCl [Cipro 500 mg Tablet] 500 mg PO BID #20 tablet Metronidazole [Flagyl 500 mg Tablet] 500 mg PO Q6H #40 tablet Referrals: [facility] [[facility]] - Follow up as needed I personally performed the services described in the documentation, reviewed and edited the documentation which was dictated to the scribe in my presence, and it accurately records my words and actions.
--- NOTE | 2020-07-26 00:24 | RADIOLOGY REPORT (SQ) ---
EXAM DESCRIPTION: CT ABDOMEN PELVIS WITH IV CONTRAST COMPLETED DATE/TME: 07/25/2020 23:49 CLINICAL HISTORY: 40 years, Male, rectal pain bleeding. Pt states that he has an internal hemorrhoid COMPARISON: None. TECHNIQUE: [id number] Images stored on PACS. All CT scanners at this facility use dose modulation, iterative reconstruction, and/or weight based dosing when appropriate to reduce radiation dose to as low as reasonably achievable (ALARA). [facility]: Dose Right [facility]: CareDose [facility]: Dose Right [facility]: Teradose 4D [facility]: [employer] LIMITATIONS: None. FINDINGS: Limited evaluation of the lung bases shows minor scarring in each lung base. Osseous structures are grossly intact. The liver, spleen, adrenal glands, pancreas, kidneys are unremarkable. The gallbladder is present. Post surgical changes in the epigastric region. There is no gross evidence for bowel obstruction. Normal appendix. No free air or free fluid. The issue rectal fossa is preserved. No abnormal fluid collections or gas collections with attention to the rectum. There is some equivocal asymmetric soft tissue density in the left perianal region however no discrete or defined abscess IMPRESSION: Equivocal asymmetric soft tissue density in the left perianal region may reflect minor inflammation. No discrete or defined abscess. No acute intra-abdominal/pelvic process TECHNICAL DOCUMENTATION: Quality ID # [id number]: Final reports with documentation of one or more dose reduction techniques (e.g., Automated exposure control, adjustment of the mA and/or kV according to patient size, use of iterative reconstruction technique) copyright 2011 [employer]- All Rights Reserved
[2020-07-26] MEDS ORDERED: ONDANSETRON HCL INJ/PF 4 MG/2 ML SDV IV ONE (00:29)
[2020-07-26] MEDS ORDERED: FENTANYL CITRATE INJ/PF 100 MCG/2 ML AMPUL IV ONE (00:29)
[2020-07-26] MEDS ORDERED: HYDROCODONE/ACETAMINOPHEN 5-325 MG (6 TAB/ER DISP) PO PRN (01:30)
[2020-07-26 02:09] VITALS: BP 116/65
== END 2020-07-26 02:31 | disposition home or self-care (01) ==
LOC: ER 18:36
DX: K61.1 Rectal abscess (principal); K62.5 Hemorrhage of anus and rectum; F17.210 Nicotine dependence, cigarettes, uncomplicated
CPT/HCPCS: 99285; 96361; 96375; 96365; 86900; 86901; 36415; 87040; 86850; 85025; 86140; 80053; 81001; 74177; J3010; J2405; J7030